=== PATIENT | female | born 1985 | race Caucasian/White ===

== ENCOUNTER 2020-02-29 15:29 | Emergency (ER) | payer OTHER, SELFPAY ==
[2020-02-29 15:33] VITALS: BP 125/44; PULSE 76; RESP 20; TEMP 36.7; O2SAT 100
--- NOTE | 2020-02-29 16:04 | ED.URI ---
HPI - URI/Sore Throat General Chief Complaint: Urogenital-Female Stated Complaint: lower back pain/burning with urination Time Seen by Provider: 02/29/20 16:04 Source: patient Mode of arrival: ambulatory Limitations: no limitations History of Present Illness HPI Narrative: Tsering Perez is a 34 yo female with no PMH who has a symptoms of dysuria frequency and will abdominal pain x2 days she says she has had frequency over the and feels really nauseated she states that the suprapubic pain has gotten worse today. She has had a UTI in the past but has not had last year Related Data Home Medications Medication Instructions Recorded Confirmed etonogestrel-ethinyl estradiol 1 vag ring VAGINAL ONCE 05/21/19 05/21/19 [NuvaRing] Allergies Allergy/AdvReac Type Severity Reaction Status Date / Time No Known Allergies Allergy Verified 05/21/19 08:17 Review of Systems Review of Systems: Narrative: CONSTITUTIONAL: Denies fever, chills, sweats. EYES: Denies visual changes, redness, discharge. ENT: Denies rhinorrhea, congestion, sore throat, otalgia. CARDIOVASCULAR: Denies chest pain, palpitations, edema. RESPIRATORY: Denies dyspnea, wheezing, cough GASTROINTESTINAL: Denies abdominal pain, nausea, vomiting, diarrhea. GENITOURINARY: Has dysuria, has frequency , no hematuria, no abnormal discharge SKIN: Denies rash or itching. NEUROLOGIC: Denies numbness, or focal weakness. PSYCHIATRIC: Denies anxiety or depression. [facility] Past Medical History Medical History (Updated 02/29/20 @ 16:14 by Esperanza Flores CNP) Bone spur of left acromioclavicular joint Surgical History Surgical History History of removal of ovarian cyst Social History Social History Smoking packs per day: 0.5 Smoking cigarettes per day: 10.0 Years smoked: 16 Smoking pack-years: 8.00 Smoking status: Current every day smoker Tobacco type: cigarettes Gender identity (if verbalized by the patient): Female Comments At time of signature, I agree with nursing past medical, surgical, social and family history. There is no relevant family history pertinent to the presenting complaint. Exam Narrative: Exam Narrative: GENERAL: This is a well-nourished, well-developed patient, in mild distress. HEAD: normocephalic, atraumatic. EYES: Sclera clear/white. Vision is grossly intact. EARS: External ears normal, . Hearing grossly intact. NOSE: External nose normal without nasal discharge, nares without redness, no rhinorrhea. THROAT: Mucous membranes moist, NECK: Neck supple, CARDIOVASCULAR: Regular rate and rhythm without murmurs, gallops, or rubs. RESPIRATORY: Clear to auscultation. Breath sounds equal bilaterally. No wheezes, rales, or rhonchi. GASTROINTESTINAL: Abdomen soft, suprapubic tenderness SKIN: warm, intact with no suspicious lesions or rash, good texture and turgor. NEURO: awake, alert, and oriented to person, place and time. There were no obvious focal neurologic abnormalities. Steady gait EXTREMITIES: Normal range of motion. BACK: Nontender without deformity Course Course Emergency Course: Came to express care with complaints of dysuria and frequency with prior history of UTI Patient is a negative for nitrite and leukocytes but positive for protein and bilirubin. Patient being treated for dysuria with cephalexin and Pyridium but patient should follow-up with PCP Vital Signs Vital signs: Vital Signs Temperature 98.1 F 02/29/20 15:33 Pulse Rate 76 02/29/20 15:33 Respiratory Rate 20 02/29/20 15:33 Blood Pressure 125/44 L 02/29/20 15:33 Pulse Oximetry 100 02/29/20 15:33 Temperature 98.1 F 02/29/20 15:33 Pulse Rate 76 02/29/20 15:33 Respiratory Rate 20 02/29/20 15:33 Blood Pressure 125/44 L 02/29/20 15:33 Pulse Oximetry 100 02/29/20 15:33 MDM - URI/Sore Throat Differential Di
== END 2020-02-29 16:20 | disposition home or self-care (01) ==
PROVIDERS: Emergency Provider Nurse Practitioner
DX: N39.0 Urinary tract infection, site not specified (principal); F17.210 Nicotine dependence, cigarettes, uncomplicated
CPT/HCPCS: 81003; 87077; 87086; 87088; 87186; 99213; G0463

== ENCOUNTER 2020-07-03 11:11 | Emergency (ER) | payer OTHER, SELFPAY ==
[2020-07-03 11:20] VITALS: BP 112/60; PULSE 92; RESP 14; TEMP 37.7; O2SAT 98
--- NOTE | 2020-07-03 11:50 | ED.URI ---
HPI - URI/Sore Throat General Chief Complaint: Upper Respiratory Infection Stated Complaint: Sore Throat, Runny Nose,Headache Source: patient Mode of arrival: ambulatory Limitations: no limitations History of Present Illness HPI Narrative: Patient is a 34-year-old female who presents complaining of fever, sore throat, body aches, cough, chills, congestion and general malaise x2 days. She reports prior to coming to urgent care having a rapid Covid testing completed at [facility]. She reports results were negative. She is here seeking strep throat testing, as she has also had in the past. She reports taking fatb-rqo-foltbxj medications with little relief. She has no known exposure to Covid, however, she does work in fast food. MD elicited complaint: sore throat Related Data Home Medications Medication Instructions Recorded Confirmed No Home Medications 07/03/20 07/03/20 Allergies Allergy/AdvReac Type Severity Reaction Status Date / Time No Known Allergies Allergy Verified 07/03/20 11:31 Review of Systems Review of Systems: Narrative: CONSTITUTIONAL: Reports fever EYES: Denies visual changes, redness, or discharge. ENT: Reports congestion in sore throat. CARDIOVASCULAR: Denies chest pain, palpitations, or edema. RESPIRATORY: Reports cough, denies dyspnea. GASTROINTESTINAL: Denies abdominal pain, nausea, vomiting, or diarrhea. GENITOURINARY: Denies dysuria or hematuria. SKIN: Denies rash or itching. MUSCULOSKELETAL: Denies back pain, joint pain, or myalgia. NEUROLOGIC: Denies headache, numbness, dizziness, or weakness. PSYCHIATRIC: Denies anxiety or depression. [facility] Past Medical History Medical History Bone spur of left acromioclavicular joint Surgical History Surgical History History of removal of ovarian cyst Family History Family History (Updated 07/03/20 @ 11:54 by MARCOS Veronica) Other No significant family history Social History Social History Smoking packs per day: 0.5 Smoking cigarettes per day: 10.0 Years smoked: 16 Smoking pack-years: 8.00 Smoking status: Current every day smoker Tobacco type: cigarettes Gender identity (if verbalized by the patient): Female Comments At the time of signature, I have reviewed and agree with nursing past medical, surgical, social, and family history unless otherwise noted. Please see nursing chart for further information. There is no relevant family history pertinent to the presenting complaint. Exam Narrative: Exam Narrative: GENERAL: Ill-appearing, in no acute distress. HEAD: Normocephalic, atraumatic. EYES: EOMI. No redness or drainage. ENT: Mucous membranes pink and moist. Nares clear. No rhinorrhea. Throat with mild erythemal. Uvula midline. NECK: AROM. Supple. No lymphadenopathy. CHEST: No respiratory distress. HEART: Regular rate and rhythm. EXTREMITIES: Normal range of motion. SKIN: Warm, dry, no rash. NEURO: No focal deficits. Alert and oriented x3. Gait steady. PSYCH: Normal affect. No signs of depression or anxiety. Course Vital Signs Vital signs: Vital Signs Temperature 37.7 C H 07/03/20 11:20 Pulse Rate 92 07/03/20 11:20 Respiratory Rate 14 07/03/20 11:20 Blood Pressure 112/60 07/03/20 11:20 Pulse Oximetry 98 07/03/20 11:20 Temperature 37.7 C H 07/03/20 11:20 Pulse Rate 92 07/03/20 11:20 Respiratory Rate 14 07/03/20 11:20 Blood Pressure 112/60 07/03/20 11:20 Pulse Oximetry 98 07/03/20 11:20 Reviewed MDM - URI/Sore Throat MDM Narrative Medical decision making narrative: Patient's rapid strep is negative in urgent care. Patient had rapid Covid prior to arrival at pharmacy. Covid PCR sent to lab at this time. Discussed with patient quarantine and use of hpbh-qbi-wijfted medications
[2020-07-04 14:07] LABS: SARS-CoV-2 RNA PCR Negative
== END 2020-07-03 11:58 | disposition home or self-care (01) ==
PROVIDERS: Emergency Provider Nurse Practitioner
DX: J06.9 Acute upper respiratory infection, unspecified (principal); Z20.822 Contact with and (suspected) exposure to COVID-19; F17.210 Nicotine dependence, cigarettes, uncomplicated
CPT/HCPCS: 87081; 87880; 99213; C9803; G0463; U0003; U0005

== ENCOUNTER 2021-06-20 09:20 | Emergency (ER) | payer OTHER, SELFPAY ==
--- NOTE | ~2021-06-20 | XR_ITS ---
XR lumbar spine 2-3V 06/20/2021 09:46 Indication: Midline back pain Procedure: 3 views lumbar spine Comparison: No prior studies for comparison. Findings: Vertebral body heights are maintained. No fracture, subluxation or dislocation. No evidence for spondylolisthesis. Mild levocurvature of the lumbar spine. Pedicles intact. There is mild disc n arrowing at L5-S1. Sacral foramen are symmetric. Impression: 1: Mild lumbar spondylosis with levocurvature of the lumbar spine. Reviewed, dictated and finalized at location A. DLE REPAIRER Impression: 1: Mild lumbar spondylosis with levocurvature of the lumbar spine.
[2021-06-20 09:26] VITALS: BP 121/77; PULSE 71; RESP 16; TEMP 36.8; O2SAT 100
--- NOTE | 2021-06-20 10:18 | ED.GENADULT ---
HPI - General Adult General Chief complaint: Back Pain/Injury Stated complaint: Back pain from fall Source: patient Mode of arrival: ambulatory Limitations: no limitations History of Present Illness HPI narrative: Patient presents for evaluation of low back pain. She indicates she has a history of a bulging disc in the lumbar spine. She states this was identified in 2020 after she woke up with low back pain in November of that year. She states pain radiated down LLE and she was told it was 2/2 sciatica. She was given steroids, anti-inflammatories and muscle relaxers. Two days ago she slipped on the ice and landed on her back. She did not hit her head nor did she have LOC. She states at rest her pain is 2/10 in severity but increases to 9/10 with movement. No saddle anesthesia. No bladder/bowel incontinence. She states she does have some radiation into her buttocks on left side. Movement makes her pain worse. She has tried high dose ibuprofen without significant improvement in her symptoms. Related Data Allergies Allergy/AdvReac Type Severity Reaction Status Date / Time No Known Allergies Allergy Verified 06/20/21 09:57 Review of Systems Review of Systems: CONSTITUTIONAL: Denies fever, chills, or sweats. EYES: Denies visual changes, redness, or discharge. ENT: Denies rhinorrhea, congestion, sore throat, or otalgia. CARDIOVASCULAR: Denies chest pain, palpitations, or edema. RESPIRATORY: Denies cough or dyspnea. GASTROINTESTINAL: Denies abdominal pain, nausea, vomiting, or diarrhea. GENITOURINARY: Denies dysuria or hematuria. SKIN: Denies rash or itching. MUSCULOSKELETAL: Reports low back pain with radiation into buttock on left side. Denies joint pain, or myalgia. NEUROLOGIC: Denies headache, numbness, dizziness, or weakness. PSYCHIATRIC: Denies anxiety or depression. [facility] Past Medical History Medical History Bone spur of left acromioclavicular joint Bulging lumbar disc Surgical History Surgical History (Updated 06/20/21 @ 10:28 by Mehul Harris, MARCOS, ) History of removal of ovarian cyst History of tubal ligation Family History Family History Other No significant family history Social History Social History Smoking packs per day: 0.5 Smoking cigarettes per day: 10.0 Years smoked: 16 Smoking pack-years: 8.00 Smoking status: Current every day smoker Tobacco type: cigarettes Gender identity (if verbalized by the patient): Female Exam Narrative: GENERAL: Well-appearing, well-nourished, and in no acute distress. HEAD: Normocephalic, atraumatic. EYES: PERRLA and EOMI. ENT: Nares clear, no rhinorrhea or epistaxis. Mucous membranes moist. Oropharynx without tonsillar hypertrophy exudate or other lesions. Bilateral TMs pearly marshall nonbulging NECK: Supple. No adenopathy or masses. No carotid bruits or JVD CHEST: Clear to auscultation. No respiratory distress. No wheezes rales or rhonchi HEART: Regular rate and rhythm. No murmur heard. Normal peripheral pulses. ABDOMEN: Soft, nontender, nondistended, normal active bowel sounds. EXTREMITIES: Normal range of motion. No edema. BACK: Tenderness in midline and paraspinous muscles on left of lumbar spine SKIN: Warm, dry, no rash. NEURO: No focal deficits. Alert and oriented x3. PSYCH: Normal mood and affect. Course Course Emergency Course: This is a 35-year-old female who presented with complaints of low back pain after fall on ice 2 days ago. She has an underlying history of a bulging disc in the lumbar spine. X-ray showed spondylosis. Exam consistent with contusion. Little improvement with ibuprofen. not checked due to history of tubal ligation. Will dc with small qty of norco. Pt to follow up outpatient for further evaluation and treatment and return f
== END 2021-06-20 10:40 | disposition home or self-care (01) ==
PROVIDERS: Emergency Provider Nurse Practitioner; PCP Nurse Practitioner Family
DX: M47.816 Spondylosis without myelopathy or radiculopathy, lumbar region (principal); S30.0XXA Contusion of lower back and pelvis, initial encounter; W00.0XXA Fall on same level due to ice and snow, initial encounter; F17.210 Nicotine dependence, cigarettes, uncomplicated
CPT/HCPCS: 72100; 99213; G0463

== ENCOUNTER 2023-04-23 13:17 | Emergency (ER) | payer BC, SELFPAY ==
[2023-04-23 13:28] VITALS: BP 118/63; PULSE 70; RESP 16; TEMP 37.7; O2SAT 98
--- NOTE | 2023-04-23 13:41 | ED.HA ---
HPI - Headache General Chief Complaint: Headache Stated Complaint: Headache Time Seen by Provider: 04/23/23 13:41 Source: patient, RN notes reviewed and old records reviewed Mode of arrival: ambulatory Limitations: no limitations History of Present Illness HPI Narrative: 37-year-old female presents with complaint fever body aches on Tuesday that resolved on Tuesday patient states now has headache since Tuesday. Patient taking [id number]-qjl-udkuhaa medications without relief patient denies any other complaints at this time MD elicited complaint: headache Onset (ago): day(s) (3) Related Data Allergies Allergy/AdvReac Type Severity Reaction Status Date / Time No Known Allergies Allergy Verified 04/23/23 13:35 Review of Systems Constitutional: Constitutional: Reports as per HPI, Reports body ache(s), Reports fever(s) and Reports headache(s) Eyes: Eyes: Reports no additional eye complaints ENT: Reports system reviewed and no additional complaints, except as documented Cardiovascular: Cardiovascular: Reports no additional cardiovascular complaints Respiratory: Respiratory: Reports no additional respiratory complaints Neurologic: Reports system reviewed and no additional complaints, except as documented PMFSH Past Medical History Medical History Bone spur of left acromioclavicular joint Bulging lumbar disc Surgical History Surgical History History of removal of ovarian cyst History of tubal ligation Family History Family History Other No significant family history Social History Social History Smoking packs per day: 0.5 Smoking cigarettes per day: 10.0 Years smoked: 16 Smoking pack-years: 8.00 Smoking status: Current every day smoker Tobacco type: cigarettes Living arrangements: with family Gender identity (if verbalized by the patient): Female Comments At the time of my signature, I reviewed and agree with the nursing past medical, surgical, social, and family history. There is no relevant family history pertinent to the patient complaint. Exam Const: General: cooperative, healthy appearing, no acute distress and well nourished Nutritional Appearance: well nourished Orientation/consciousness: patient oriented x3 Limitations: no limitations HENMT: Head: normal to inspection and normocephalic Ears: external ears normal, TM's normal bilaterally, mastoids normal and Abnormal EAC present Face/Nose/Sinus: normal facial exam Face and sinus: normal facial exam Mouth: Yes Normal oral and palatal mucosa present, Yes oropharynx normal and Yes moist mucous membranes Throat: posterior oropharynx normal, tonsils normal, uvula midline and no uvular edema Eyes: General: appearance normal, both eyes and all related structures Sclera: sclerae normal Pupils: Equal, round and reactive pupils present Resp: Effort & Inspection: normal respiratory effort, able to speak in complete sentences, no audible wheezes, no cough, no respiratory distress and no retractions Auscultation: clear to auscultation bilaterally, no crackles, no rales, no rhonchi and no wheezes Cardio: Rate: regular rate Rhythm: regular rhythm Skin: General skin exam: normal color and no rashes or lesions noted Neuro: General: patient oriented x3 Cranial nerves: Yes Equal, round and reactive pupils present Psych: Appearance: grossly normal Course Course Emergency Course: Some parts of this dictation were generated by voice recognition software and may contain typographical and/or grammatical inaccuracies. Level of Care: Express Care Visit Vital Signs Vital signs: Vital Signs Temperature 99.8 F H 04/23/23 13:28 Pulse Rate 70 04/23/23 13:28 Respiratory Rate 16 04/23/23 13:28 Blood Pressure 11
[2023-04-23] MEDS: ONDANSETRON HCL ODT 4 MG TABLET PO (13:47)
[2023-04-23] MEDS: KETOROLAC (*BKC) 60 MG/2 ML VIAL IM (13:47)
== END 2023-04-23 14:12 | disposition home or self-care (01) ==
PROVIDERS: Emergency Provider Registered Nurse; PCP Nurse Practitioner Family
DX: R51.9 Headache, unspecified (principal); F17.210 Nicotine dependence, cigarettes, uncomplicated
CPT/HCPCS: 96372; 99213; A9270; G0463; J1885

== ENCOUNTER 2023-05-18 10:16 | Emergency (ER) | payer BC, SELFPAY ==
[2023-05-18 10:23] VITALS: BP 112/66; PULSE 75; RESP 16; TEMP 36.7; O2SAT 100
--- NOTE | 2023-05-18 10:44 | ED.GENADULT ---
HPI - General Adult General Chief complaint: Upper Respiratory Infection Stated complaint: Sore Throat/Headache/Ear Pain Source: patient, RN notes reviewed and old records reviewed Mode of arrival: ambulatory Limitations: no limitations History of Present Illness HPI narrative: 37-year-old female presents to [facility] with complaints of sore throat for 1 week, then started having cough, congestion, Bilateral earaches,body aches, fatigue 2-3 days ago. patient taking dven-uar-hsllune medications with no relief. Patient denies dizziness, weakness, chest pain, shortness of breath. MD complaint: cough, congestion Onset (ago): day(s) Related Data Allergies Allergy/AdvReac Type Severity Reaction Status Date / Time No Known Allergies Allergy Verified 05/18/23 10:59 Review of Systems Constitutional: Constitutional: Reports no additional constitutional complaints, Reports body ache(s), Denies chills, Reports fatigue, Denies fever(s) and Denies headache(s) Eyes: Eyes: Reports no additional eye complaints and Denies blurry vision ENT: Reports system reviewed and no additional complaints, except as documented, Denies vertigo, Denies dizziness, Denies ear discharge, Reports otalgia, Denies facial pain, Reports headache(s), Reports nasal congestion, Denies nasal discharge, Denies sinus pain, Denies sinus pressure and Reports sore throat Cardiovascular: Cardiovascular: Reports no additional cardiovascular complaints, Denies chest pain, Denies chest pain at rest, Denies rapid heart rate and Denies dyspnea Respiratory: Respiratory: Reports no additional respiratory complaints, Denies chest congestion, Reports cough, Denies pain on inspiration, Denies pain with cough and Denies dyspnea Gastrointestinal: Gastrointestinal: Denies abdominal pain, Denies diarrhea, Denies nausea and Denies vomiting Integumentary/Breasts: Skin/Breast: Denies rash Neurologic: Reports system reviewed and no additional complaints, except as documented, Denies vertigo, Denies dizziness and Denies headache(s) Endocrine: Endocrine: Denies fatigue PMFSH Past Medical History Medical History Bone spur of left acromioclavicular joint Bulging lumbar disc Surgical History Surgical History History of removal of ovarian cyst History of tubal ligation Family History Family History Other No significant family history Social History Social History Smoking packs per day: 0.5 Smoking cigarettes per day: 10.0 Years smoked: 16 Smoking pack-years: 8.00 Smoking status: Current every day smoker Tobacco type: cigarettes Living arrangements: with family Gender identity (if verbalized by the patient): Female Comments At the time of my signature, I reviewed and agree with the nursing past medical, surgical, social, and family history. There is no relevant family history pertinent to the patient complaint. Exam Const: General: cooperative, healthy appearing, no acute distress, ill appearing acutely and well nourished Nutritional Appearance: well nourished Orientation/consciousness: patient oriented x3 Limitations: no limitations HENMT: Head: normal to inspection and normocephalic Ears: external ears normal, TM's normal bilaterally, mastoids normal and Abnormal EAC present Face/Nose/Sinus: normal facial exam Face and sinus: normal facial exam Mouth: Yes Normal oral and palatal mucosa present, Yes oropharynx normal and Yes moist mucous membranes Throat: tonsils normal, uvula midline, posterior oropharynx abnormal erythema and no uvular edema Eyes: General: appearance normal, both eyes and all related structures Sclera: sclerae normal Pupils: Equal, round and reactive pupils present Resp: Effort & Inspection: normal respiratory eff
== END 2023-05-18 11:15 | disposition home or self-care (01) ==
PROVIDERS: Emergency Provider Registered Nurse; PCP Nurse Practitioner Family
DX: B34.9 Viral infection, unspecified (principal); Z20.822 Contact with and (suspected) exposure to COVID-19; F17.210 Nicotine dependence, cigarettes, uncomplicated
CPT/HCPCS: 87081; 87426; 87804; 87880; 99213; C9803; G0463